=== PATIENT | female | born 1995 | race Caucasian/White ===

== ENCOUNTER 2018-07-05 10:17 | Emergency (ER) | payer MEDICAID, SELFPAY ==
[2018-07-05 10:35] VITALS: BP 131/81; PULSE 70; RESP 16; TEMP 36.7; O2SAT 100
--- NOTE | 2018-07-05 10:53 | ED.GENADUL_ITS ---
Discharge Plan Disposition Patient Disposition: HOME Condition: Good Discharge Details Chief Complaint: RespSymp Clinical Impression: Conjunctivitis of both eyes, Laryngitis Primary Care Provider: Melanie Alexander ED Provider: Eulalio Kaur Home Meds and New Rx's Prescriptions: Continued levonorgestrel-ethinyl estrad [Aubra] 0.1-20 mg-mcg Tablet 1 tab PO DAILY RF: 0 Discharge Instructions Instructions: Laryngitis (ED), Conjunctivitis (ED) Additional Instructions: Use the provided ointment and apply half inch to each eye 4 times daily for the next 5 to 7 days. Return to the emergency department for new or any significant worsening of symptoms otherwise follow-up with your primary care provider as needed for reassessment. You may use throat lozenges for your lost voice and avoid any vocal strain. Referrals: Melanie Alexander [Primary Care Provider] - (As needed for reassessment or if not improving) Discharge Data Discharge Date/Time-TO BE ENTERED AT DEPARTURE: 07/05/18 11:11 Medical Decision Making Patient presenting the emergency department for chief complaint of reddened eyes. She states that she has noticed these worsening over the past 3 days and bought some [id number] allergy drops that she thought would help but has is worsening symptoms and this morning woke up with completely matted over crusted eyes. Patient has diffuse bilateral conjunctival injection with slightly worsening symptoms on the right compared to the left. Exam is otherwise unremarkable except for a irritated sounding voice but oropharynx is nondiagnostic non-worrisome with no emergent findings. I feel the patient has conjunctivitis and secondary laryngitis this may be allergy related but given the patient has had worsening symptoms conservative therapy I do feel that patient should receive erythromycin ointment. Patient was offered eyedrops but stated she would prefer the ointment. After discussion of diagnosis and plan of care patient has no further needs, questions, or concerns and states clear understanding to return to the emergency department for any worsening symptoms. HPI General Mode of arrival: ambulatory . Date/Time Provider Initiated Documentation: 07/05/18 10:42 . Limitations to Documentation: no limitations . Information obtained by: patient and RN notes reviewed . History of Present Illness 23 year old F presents to the emergency department with the chief complaint of Red irritated eyes, hoarse voice, Quality is described as other (Denies pain), and is localized to the eyes (Bilateral). Patient started experiencing this day(s) (4) and it has been constant. No relieving factors improve symptom(s), No exacerbating factors reported . Patient notes no other symptoms.. Patient did receive the following treatments prior to arrival, other (Allergy eyedrops) Related Data Home Medications Medication Instructions Recorded Confirmed levonorgestrel-ethinyl estrad 1 tab PO DAILY 07/05/18 07/05/18 [Aubra] Allergies Allergy/AdvReac Type Severity Reaction Status Date / Time No Known Allergies Allergy Unverified 07/05/18 10:37 General Stated Complaint: RespSymp KEIKO: 4 Review of Systems Constitutional Denies chills, Denies fever(s), Denies headache(s) and Denies malaise Eyes Reports as per HPI, Denies blurry vision, Reports eye discharge, Denies eye pain and Denies requires corrective lenses ENT Denies change in voice, Denies dysphagia, Denies otalgia, Denies headache(s), Reports hoarseness, Denies lip swelling, Denies mouth lesions, Denies nasal congestion, Denies odynophagia, Denies sore throat, Denies throat swelling and Denies tongue swelling Cardiovascular Denies chest pain Respiratory Denies chest congestion and Denies cough Gastrointestinal Denies dysphagia and Denies odynophagia Neurologic Denies headache(s) Allergic/Immunologic Denies lip swelling, Denies throat swelling and Denies tongue swelling [facility] Social History Smoking/Tobacco Use Status: Never Drug use: Never Do you feel safe in your relationship?: Yes Exam Const General: cooperative, healthy appearing, comfortable, no acute distress and not ill appearing Orientation: alert, awake and oriented x3 HENMT Head: normal to inspection and normocephalic Ears: hearing grossly normal bilaterally, external ears normal, TM's normal bilaterally and mastoids normal General nose exam: external nose normal and nares normal Mouth: oral mucosae normal, lip normal, tongue normal, no audible dysphonia, no drooling and no trismus Throat: posterior oropharynx normal, tonsils normal, uvula midline and no peritonsillar masses Eyes Alignment and Position: alignment normal Periorbital: periorbital findings normal Eyelids: eyelids normal Conjunctivae: conjunctival abnormality bilaterally conjunctival injection (Slightly worse on the right than left) diffuse Cornea: corneas normal Pupils: PERRL EOM: EOM intact bilaterally Neck Neck: normal visual inspection, full ROM, no lymphadenopathy and no meningeal signs Resp Effort & Inspection: normal respiratory effort, able to speak in complete sentences and no stridor Auscultation: clear to auscultation bilaterally Cardio Rate: regular rate Rhythm: regular rhythm Heart Sounds: S1 normal and S2 normal Skin General skin exam: no rashes or lesions noted Course Vital Signs Temperature 36.7 C 07/05/18 10:35 Pulse 70 07/05/18 10:35 Respiratory Rate 16 07/05/18 10:35 Blood Pressure 131/81 07/05/18 10:35 Pulse Oximetry 100 07/05/18 10:35 Temperature 36.7 C 07/05/18 10:35 Temperature Source Skin 07/05/18 10:35 Pulse 70 07/05/18 10:35 Respiratory Rate 16 07/05/18 10:35 Respiratory Effort Non-Labored 07/05/18 10:35 Blood Pressure 131/81 07/05/18 10:35 Blood Pressure Position Sitting 07/05/18 10:35 Pulse Oximetry 100 07/05/18 10:35 Oxygen Delivery Method Room Air 07/05/18 10:35 Oxygen Flow Rate 0 07/05/18 10:35 Pain Level 0 07/05/18 10:35
[2018-07-05] MEDS: Erythromycin Ophth Oint 3.5 GM TUBE OU (11:04)
== END 2018-07-05 11:11 | disposition home or self-care (01) ==
PROVIDERS: Emergency Provider Nurse Practitioner Family; PCP Nurse Practitioner Family
DX: H10.213 Acute toxic conjunctivitis, bilateral (principal); J04.0 Acute laryngitis
CPT/HCPCS: 99283